=== PATIENT | female | born 1970 | race Caucasian/White ===

== ENCOUNTER 2018-07-03 05:25 | Inpatient (IN) | payer OTHER ==
[2018-07-01 18:38] VITALS: Ht 157.5 cm; Wt 55.0 kg
[2018-07-03] VITALS (28 sets, daily range): BP systolic 99–128; BP diastolic 52–70; PULSE 60–83; RESP 10–20
[~2018-07-03] VITALS: Ht 157.5 cm; Wt 55.0 kg
--- NOTE | 2018-07-03 07:21 | PREAC ---
Date/Time of Note Date/Time of Note DATE: 07/03/18 TIME: 07:20 Anesthesia Eval and Record Evaluation Time Pre-Procedure Interview DATE: 07/03/18 TIME: 07:20 Age 47 Sex female NPO: 8 hrs Preoperative diagnosis menorrhagia Planned procedure supracervical hysterectomy, bilateral salpino-oophorectomy Past Medical History Past Medical History: None Surgery & Anesthesia Issues No known issue Meds Anticoagulation: No Beta Arabella within 24 hr: No Reason Beta Arabella not given: Pt. not on B-Arabella No Active Prescriptions or Reported Meds Meds reviewed: Yes Allergies Coded Allergies: No Known Allergy (Unverified , 07/03/18) Allergies Reviewed: Yes Labs/Studies Labs Reviewed: Reviewed by anesthesiologist test: Negative Studies: ECG (nsr), CXR (nad) Pre-procedure Exam Last vitals Vital Signs Date Temp Pulse Resp B/P (MAP) Pulse Ox O2 O2 Flow FiO2 Time Delivery Rate 07/03/18 97.3 60 16 99/63 (75) 99 Room Air 06:09 Airway: Adequate mouth opening, Adequate thyromental dist Mallampati: Mallampati II Teeth: Normal Lung: Normal Heart: Normal ASA Physical Status ASA physical status: 1 Emergency: None Planned Anesthetic General/MAC: ETT Planned Pain Management Parenteral pain med Pre-operative Attestations Prior to commencing anesthesia and surgery, the patient was re-evaluated, there was verification of: *The patient's identity *The results of appropriate recent lab work and preoperative vital signs *The above evaluation not changing prior to induction *Anesthetic plan, risk benefits, alternative and complications discussed with patient/family; questions answered; patient/family understands, accepts and wishes to proceed. SRINATH CONDE MD Jul 03, 2018 07:21
[2018-07-03] MEDS ORDERED: LIDOCAINE 2% (SDV) 5 ML INJ ONE (07:26)
[2018-07-03] MEDS ORDERED: FENTAnyl 50 MCG/ML VIAL ONE (07:26)
[2018-07-03] MEDS ORDERED: PROPOFOL 20 ML ONE (07:26)
[2018-07-03] MEDS ORDERED: MIDAZOLAM 1 MG/ML 2 ML INJ ONE (07:26)
[2018-07-03] MEDS ORDERED: CEFAZOLIN 1 GM INJ ONE (07:38)
[2018-07-03] MEDS ORDERED: PHENYLephrine (100 MCG/ML) 5ML SYG ONE (07:41)
[2018-07-03] MEDS ORDERED: FAMOTIDINE 20 MG INJ ONE (07:48)
[2018-07-03] MEDS ORDERED: ONDANSETRON 4 MG INJ ONE (07:48)
[2018-07-03] MEDS ORDERED: DEXAMETHASONE 4 MG/ML 5 ML INJ ONE (07:48)
[2018-07-03] MEDS ORDERED: PROCHLORPERAZINE 10 MG INJ IV PRN (08:00)
[2018-07-03] MEDS ORDERED: ONDANSETRON 4 MG INJ IV PRN ×3 (08:00→09:30)
[2018-07-03] MEDS ORDERED: NALOXONE (0.4 MG/ML) INJ IV PRN (08:00)
[2018-07-03] MEDS ORDERED: hydrALAzine 20 MG INJ IV PRN (08:00)
[2018-07-03] MEDS ORDERED: HYDROmorphONE 1 MG/5 ML IV SYRINGE IV PRN ×3 (08:00)
[2018-07-03] MEDS ORDERED: FENTAnyl 50 MCG/ML VIAL IV PRN ×3 (08:00)
[2018-07-03] MEDS ORDERED: EPHEDrine SULFATE 50 MG/5 ML SYG IV PRN (08:00)
[2018-07-03] MEDS ORDERED: LABETALOL HCL 20MG INJ IV PRN (08:00)
[2018-07-03] MEDS ORDERED: ZOLPIDEM 5 MG TAB PO PRN (08:00)
[2018-07-03] MEDS ORDERED: HYDROmorphONE 0.5 MG/0.5 ML SYG IV PRN ×2 (08:00)
[2018-07-03] MEDS ORDERED: MEPERIDINE 25 MG INJ IV PRN (08:00)
[2018-07-03] MEDS ORDERED: DIPHENHYDRAMINE 50 MG INJ IV PRN ×2 (08:00)
--- NOTE | 2018-07-03 08:12 | PREOPHP ---
DATE OF ADMISSION: 07/03/2018 HISTORY OF PRESENT ILLNESS: This is a 47-year-old lady, 3, para 2 with 1 spontaneous abortio n. Her last normal menstrual period was a few days prior to admission. She was admitted for explora tory laparotomy, supracervical hysterectomy, bilateral salpingo-oophorectomy, possible FRANSISCA. The proc edures were explained to the patient and she understood everything totally. The risks, benefits, and alternatives were discussed with her as well. This patient is known to have about 18 weeks size fib roid. She bleeds very heavy with her period with blood clots and very painful. This was happening f or the last few years and getting worse up to the time of admission. She is known to be anemic as we ll. PAST MEDICAL HISTORY: The patient has no history of diabetes, TB, asthma. The patient is known to b e anemic. FAMILY HISTORY: Father has high blood pressure, nieces have heart disease and family history of stro ke. She is 3, para 2. She had 2 normal deliveries and 1 spontaneous . GYNECOLOGIC HISTORY: She had menarche at the age of 10, every 28 days interval, 3 to 4 days duration , and moderate in amount. REVIEW OF SYSTEMS: CARDIOVASCULAR: No chest pains. RESPIRATORY: No cough. GASTROINTESTINAL: No diarrhea, no vomiting. GENITOURINARY: No dysuria. PHYSICAL EXAMINATION: GENERAL: Reveals a conscious, coherent lady and in no acute distress. VITAL SIGNS: Her blood pressure 120/80, pulse rate 80 per minute, respirations 16 per minute. BREASTS, HEART AND LUNGS: Within normal limits. ABDOMEN: Soft. No organomegaly. Uterus about 18 weeks size. PELVIC: Revealed the cervix to be firm. Uterus 18 weeks size, and adnexa were negative for masses. RECTAL: Confirmed the pelvic findings. EXTREMITIES: No pedal edema. ADMITTING DIAGNOSIS: Symptomatic fibroid uterus, menorrhagia, anemia and chronic pelvic pain. The p atient wanted to have her cervix to be left behind. She had 1 ASCUS but negative HPV. She likes her ovaries to be taken out as well, but she understands that she needs to have a repeat Pap smear and s he understood everything totally. She knows that if the ovaries are taken out she will go into max ture menopause. Dictated By: CHRISTIAN COMBS MD NS/NTS Conf#: [id number] DID#: [id number] CC: CHRISTIAN COMBS MD;*End*
--- NOTE | 2018-07-03 08:28 | PREOPHP ---
DATE OF ADMISSION: 07/03/2018 ADDENDUM DATED 07/03/2018: This patient originally when she was in the office wanted her ovaries to be taken out in the preop holding area. After talking to her again, repeating the type of surgery sh kristyn is going to have, now she changed her mind. She wanted her ovaries to be left behind unless there is some cyst. So at this time, she is only going to go for supracervical hysterectomy. She is aware that she had ASCUS and one Pap smear and she is aware that she needs to be followed up with her Pap smear, so the procedure was going to be done is only supracervical hysterectomy, no BSO. Dictated By: CHRISTIAN COMBS MD NS/NTS Conf#: [id number] DID#: [id number] CC: CHRISTIAN COMBS MD;*EndCC*
[2018-07-03] MEDS ORDERED: HYDROmorphONE 2 MG/ML SYG ONE (08:39)
[2018-07-03] MEDS ORDERED: GLYCOPYRROLATE 0.4 MG INJ ONE (08:54)
[2018-07-03] MEDS ORDERED: NEOSTIGMINE 10 MG INJ ONE (08:54)
[2018-07-03] MEDS ORDERED: KETOROLAC 30 MG INJ ONE (08:58)
--- NOTE | 2018-07-03 09:25 | SIPON ---
Date/Time of Note Date/Time of Note DATE: 07/03/18 TIME: 09:22 Operative Report Preoperative Diagnosis CHRONIC PELVIC PAIN MENORRHAGIA ANEMIA ENDOMETRIAL THICKENING Postoperative Diagnosis CHRONIC PELVIC PAIN MENORRHAGIA ANEMIA ENDOMETRIAL THICKENING PERINEAL RELAXATION Operation/Procedure Performed EXPLORATORY LAPAROTOMY SUPRACERVICAL HYSTERECTOMY BILATERAL SALPINGECTOMY VAGINAL VAULT SUSPENSION Surgeon see signature line showroom sales assistant DR CAROL GOVEA Anesthesia: general Estimated blood loss: 150 - 200 ml's Transfusion Required none Specimen PARTS OR CERVIX BODY OF UTERUS BOTH TUBES Grafts/Implants none Complications none CHRISTIAN COMBS MD Jul 03, 2018 09:25
[2018-07-03] MEDS: HYDROmorphONE 0.2 MG/ML PCA IV SCH ×2 (09:37→09:40)
--- NOTE | 2018-07-03 09:53 | PAC ---
Date/Time of Note Date/Time of Note DATE: 07/03/18 TIME: 09:52 Post-Anesthesia Notes Post-Anesthesia Note Last documented vital signs Vital Signs Date Temp Pulse Resp B/P (MAP) Pulse Ox O2 O2 Flow FiO2 Time Delivery Rate 07/03/18 62 11 107/52 100 Mask 10.0 09:45 (70) 07/03/18 97.3 06:09 Activity: WNL Respiratory function: WNL Cardiovascular function: WNL Mental status: Baseline Pain reasonably controlled: Yes Hydration appropriate: Yes Nausea/Vomiting absent: Yes SRINATH CONDE MD Jul 03, 2018 09:53
[2018-07-03] MEDS: LACTATED RINGER'S 1,000 ML IV SCH ×3 (12:27→20:28)
[2018-07-03] MEDS: KETOROLAC 30 MG INJ IV SCH ×2 (16:33→22:11)
[2018-07-04] VITALS: BP 107/58; PULSE 81; RESP 16
[2018-07-04] MEDS: LACTATED RINGER'S 1,000 ML IV SCH ×5 (01:03→20:20)
[2018-07-04] MEDS: KETOROLAC 30 MG INJ IV SCH ×3 (03:59→10:35)
[2018-07-04 04:00] VITALS: BP 107/59; PULSE 88; RESP 16
[2018-07-04] MEDS ORDERED: BISACODYL 10 MG SUPP PR ONE ×2 (06:00→17:00)
[2018-07-04] MEDS ORDERED: MAGNESIUM HYDROXIDE 30ML CUP PO ONE ×2 (06:00→17:00)
[2018-07-04 08:00] VITALS: BP 103/58; PULSE 80; RESP 18
[2018-07-04] MEDS ORDERED: HYDROCODONE/APAP (5/325) TAB PO PRN (09:30)
[2018-07-04] MEDS ORDERED: IBUPROFEN 800 MG TAB PO PRN (09:30)
[2018-07-04 12:00] VITALS: BP 105/53; PULSE 86; RESP 18
--- NOTE | 2018-07-04 14:21 | OPR ---
DATE OF OPERATION: 07/03/2018 PREOPERATIVE DIAGNOSES: 1. Fibroid uterus. 2. Chronic pelvic pain. 3. Endometrial thickening. 4. Menorrhagia. 5. Perineal relaxation. POSTOPERATIVE DIAGNOSES: 1. Fibroid uterus. 2. Chronic pelvic pain. 3. Endometrial thickening. 4. Menorrhagia. 5. Left hydrosalpinx. 6. Perineal relaxation. SURGEON: Christian Harry MD WORKFORCE PLANNING ANALYST: Quinn Tilley MD ANESTHESIA: General. OPERATION PERFORMED: Exploratory laparotomy, supracervical hysterectomy and bilateral salpingectomies and vaginal vault suspension. OPERATIVE TECHNIQUE: Under general anesthesia, the patient was prepped and draped in the usual fashion for abdominal surgery. After checking for the effect of the anesthesia, Pfannenstiel incision of about 12 cm skin incision was performed. The incision was carried from the skin up to the fascia. Upon opening the skin up to the fascia, small blood vessels were noted to be oozing and these were all cauterized. Fascia was opened transversely followed by splitting the muscles vertically and the peritoneum vertically. Upon opening the abdominal cavity, the uterus was noted to be about 18 weeks' size with multiple fibroids noted. The upper abdominal organs were palpated. They were within normal limits. The uterus was pulled out from the pelvic cavity and then two 8-inch Kochers were placed at each paratubal and paraovarian ligament on both sides. These were used for traction. Then, the left round ligament was grasped with 2 Kochers and cut. A stick tie with 0 Vicryl was used and tagged. The left broad ligament was skeletonized for the development of the bladder flap. The left utero-ovarian, left uterotubal ligament was grasped with 2 Vicki clamps and pulled back with straight Deann and cut. At first, a free tie with 0 Vicryl was used followed by Vicki suture. Bleeders were checked and there was no bleeding noted. Then, the same thing was done on the right side. The right round ligament was grasped with 2 Kochers and cut. At first, a free tie with 0 Vicryl was used and tied. The right broad ligament was skeletonized for the development of the bladder flap. The right utero-ovarian, right uterotubal ligament was grasped with 2 Vicki clamps and pulled back with a straight Deann and cut. At first, a free tie with 0 Vicryl was used followed by Vicki suture. Once again, the bladder was from the cervix by sharp and blunt dissection. There was a huge fibroid about 6 x 6 cm on the lower uterine segment. Then, the left uterine vessels were brought to view. The left uterine vessels were grasped with 2 Vicki clamps and pulled back with a straight Deann and cut. A stick tie with 0 Vicryl was used on each clamp. Same thing was done on the right side. Once again, the bladder was from the cervix by sharp and blunt dissection. Two more Kochers were placed at each paracervical tissue on both sides, left and right and on each Deann, the tissue was cut and a stick tie with 0 Vicryl was used. The body of the uterus was excised. Pelvis was noted to be very deep. Then, the self-retaining retractor was put in place. The bladder blade was put in place. The bowels were packed away from the operative field with the aid of 6 wet lap sponges and the upper blade was put in place. Then, the hysterectomy was continued. Once again, the bladder was from the cervix by sharp and blunt dissection. About 6 more Kochers were placed at its paracervical tissue on the left and right side and on each Deann, the tissue was cut and stick tied with 0 Vicryl was used. Bleeders were checked and there was no bleeding noted. After checking for any bleeders in which there were none, left tube was grasped and it was noted to be about 4 x 4 cm with a hematosalpinx. Then, the left tube was excised and then Vicki suture was put in. Bleeders were checked and there was no bleeding noted. Same thing was done first on the left side and then on the right side. As mentioned, 7 Kochers were placed at this paracervical tissue on the left and right side and on each Deann, the tissue was cut and stick tied with 0 Vicryl was used. Then, 2/3 of the cervix was excised and the remaining mucosa was cauterized and it was grasped with a single tooth tenaculum and then the remaining cervix was closed in 3 layers using 0 Vicryl. The right angle of the cervix was sutured with the right paracervical tissue and in turn tied with the right round ligament for vaginal vault suspension. After checking for any bleeders in which there were none and after checking all the stumps in which there were none, then the right paracervical tissue was sutured with the right round ligament for vaginal vault suspension. Same thing was done on the left side. Once again, irrigation to check for any bleeders and there was no bleeding noted. After correct sponge count, needle count and instrument count as confirmed by the aerospace physiological technician and health workers, the abdomen was closed in the usual fashion using 0 Vicryl for the peritoneum, 0 Vicryl for the muscles, for the fascia 0 Vicryl continuous, followed by few [id number] sutures. For the subcutaneous tissue, it was closed with 3-0 Vicryl and the skin was closed with 3-0 Vicryl subcuticular suture was used. As mentioned, the right angle of the cervix was tied with the right round ligament. Same thing was done on the left side for vaginal vault suspension. Of note, the left tube was noted to be in hydrosalpinx and then the remaining tissue was sutured. Estimated blood loss was about 200 mL. Vital signs are stable during and after the procedure. Dictated By: CHRISTIAN AKHTAR/GRAYSON Conf#: [id number] DID#: [id number]
[2018-07-04 20:00] VITALS: BP 107/52; PULSE 85; RESP 18
[2018-07-04] MEDS: HYDROCODONE/APAP (5/325) TAB PO PRN (21:59)
[2018-07-05] MEDS: LACTATED RINGER'S 1,000 ML IV SCH (01:30)
[2018-07-05 02:18] VITALS: BP 106/52; PULSE 87; RESP 18
[2018-07-05 07:29] VITALS: BP 107/60; PULSE 83; RESP 18
[2018-07-05] MEDS: HYDROCODONE/APAP (5/325) TAB PO PRN (08:38)
[2018-07-05 15:18] VITALS: BP 109/61; PULSE 84; RESP 18
== END 2018-07-05 18:05 | disposition home or self-care (01) | DRG 743 ==
LOC: REC 05:25 → EDSTATUS 07:30 → 2NE 11:35
PROVIDERS: ADMIT Obstetrics & Gynecology; ATTEND Obstetrics & Gynecology
PROC: 0UT70ZZ Resection of Bilateral Fallopian Tubes, Open Approach (ICD-10-PCS; 2018-07-03)
PROC: 0USG0ZZ Reposition Vagina, Open Approach (ICD-10-PCS; 2018-07-03)
PROC: 0UT90ZL Resection of Uterus, Supracervical, Open Approach (ICD-10-PCS; principal; 2018-07-03 07:30)
DX: N92.0 Excessive and frequent menstruation with regular cycle (principal); D25.9 Leiomyoma of uterus, unspecified; R10.2 Pelvic and perineal pain; D64.9 Anemia, unspecified; N81.89 Other female genital prolapse; N70.11 Chronic salpingitis; R93.89 Abnormal findings on diagnostic imaging of other specified body structures
CPT/HCPCS: 80053; 84702; 85025; 86850; 86900; 86901; 86920; 87086; 88305; J0690; J1100; J1170; J1885; J2250; J2370; J2405; J2710; J3010; J7120